=== PATIENT | male | born 1980 | race Caucasian/White ===

== ENCOUNTER 2017-02-08 13:44 | Inpatient (IN) | payer MEDICAID ==
[~2017-02-08] VITALS: Ht 175.3 cm; Wt 115.3 kg
[~2017-02-08 13:44] MED LIST: CITA10TA68 PO; VIST50 PO
[2017-02-08] MEDS ORDERED: TRAM50TA4 PO (16:55)
[2017-02-08] MEDS ORDERED: PERCT10 PO (16:55)
[2017-02-08] MEDS ORDERED: TEMA15CA PO (16:55)
[2017-02-08] MEDS ORDERED: ZOLPIDEM TARTRATE 10 MG TABLET PO PRN (17:00)
[2017-02-08 17:17] VITALS: BP 122/75
[2017-02-08 18:20] VITALS: BP 130/66
[2017-02-08] MEDS: LORazepam 2 MG TABLET PO PRN (18:55)
[2017-02-08] MEDS ORDERED: ACETAMINOPHEN 325 MG TABLET PO PRN (19:45)
[2017-02-08] MEDS ORDERED: IBUPROFEN 600 MG TABLET PO PRN (19:45)
[2017-02-08 20:25] VITALS: BP 127/78
[2017-02-09 00:17] VITALS: BP 114/69
[2017-02-09] MEDS: LORazepam 2 MG TABLET PO PRN ×2 (00:52→09:51)
[2017-02-09 08:23] LABS: BASOPHILS % (AUTO) 0.5 % (0.0-2.0); EOSINOPHILS % (AUTO) 2.2 % (1.0-6.0); HEMATOCRIT 42.9 % (41-53); HEMOGLOBIN 14.3 g/dL (13.5-17.5); LYMPHOCYTES # (AUTO) 2.2 K/uL (1.0-4.8); MEAN CORPUSCULAR HEMOGLOBIN 29.1 pg (26.0-34.0); MEAN CORPUSCULAR HGB CONC 33.4 G/dL (31.0-37.0); MEAN CORPUSCULAR VOLUME 87 fL (80-100); MONOCYTES # (AUTO) 0.8 K/uL (0.1-1.0); MONOCYTES % (AUTO) 9.5 % (2.0-9.0); NEUTROPHILS # (AUTO) 5.3 K/uL (1.8-7.7); NEUTROPHILS % (AUTO) 61.8 % (40.0-70.0); PLATELET COUNT (AUTO) 230 K/uL (150-450); RED BLOOD CELL COUNT(AUTO) 4.91 MIL/uL (4.50-5.90); RED CELL DISTRIBUTION WIDTH 14.8 % (11.5-14.5); WHITE BLOOD COUNT (AUTO) 8.5 K/uL (4.5-11.0)
[2017-02-09 08:50] LABS: ALANINE AMINOTRANSFERASE 32 U/L (12-78); ALBUMIN 3.8 g/dL (3.4-5.0); ANION GAP 11 mmol/L (8-16); ASPARTATE AMINOTRANSFERASE 21 U/L (15-37); BILIRUBIN,TOTAL 0.5 mg/dL (0.1-1.0); CALCIUM, TOTAL 8.7 mg/dL (8.8-10.5); CARBON DIOXIDE 27 mmol/L (22-29); CHLORIDE 106 mmol/L (98-107); CHOL/HDL RATIO 5.6 (4.2-7.3); CREATININE 0.96 mg/dL (0.60-1.30); GLOMERULAR FILTR. RATE CALC > 60 mL/min (>60); POTASSIUM 4.3 mmol/L (3.5-5.1); SODIUM SERUM 144 mmol/L (136-145); THYROID STIMULATING HORMONE 0.38 uIU/mL (0.36-3.74); TOTAL PROTEIN, SERUM 6.8 g/dL (6.4-8.2); UREA NITROGEN, BLOOD 20 mg/dL (7-18)
[2017-02-09 08:59] VITALS: BP 113/84
[2017-02-09] MEDS ORDERED: NICOTINE 21 MG/24 HOUR PATCH TD SCH (09:00)
[2017-02-09] MEDS ORDERED: CITALOPRAM HYDROBROMIDE 10 MG TABLET PO SCH (10:30)
[2017-02-09] MEDS ORDERED: HydrOXYzine PAMOATE 50 MG CAPSULE PO SCH (17:00)
[2017-02-09] MEDS ORDERED: TEMAZEPAM 15 MG CAPSULE PO SCH (21:00)
== END 2017-02-09 14:10 | disposition home or self-care (01) | DRG 254 ==
LOC: B2S 17:35
PROVIDERS: ADMIT Psychiatry & Neurology Child & Adolescent Psychiatry; ATTEND Psychiatry & Neurology Child & Adolescent Psychiatry
DX: K43.9 Ventral hernia without obstruction or gangrene (principal); N32.81 Overactive bladder; M54.9 Dorsalgia, unspecified; M17.12 Unilateral primary osteoarthritis, left knee; Z82.49 Family history of ischemic heart disease and other diseases of the circulatory system; Z90.49 Acquired absence of other specified parts of digestive tract; Z88.0 Allergy status to penicillin; Z88.1 Allergy status to other antibiotic agents; Z68.37 Body mass index [BMI] 37.0-37.9, adult; F17.210 Nicotine dependence, cigarettes, uncomplicated
CPT/HCPCS: 84439; 84443

== ENCOUNTER 2020-04-22 17:44 | Emergency (ER) | payer MEDICAID, OTHER ==
[~2020-04-22] VITALS: Ht 177.8 cm; Wt 109.1 kg
[2020-04-22] MEDS ORDERED: ESCI-8 PO (17:57)
[2020-04-22] MEDS ORDERED: LORA-999 PO (17:57)
[2020-04-22] MEDS ORDERED: ARIP2 PO (17:57)
[2020-04-22] MEDS ORDERED: CYCL10 PO (17:57)
[2020-04-22] MEDS ORDERED: OXYB5XL PO (17:57)
[2020-04-22] MEDS ORDERED: HYDR-4031 PO (17:57)
[2020-04-22] MEDS ORDERED: BUPR1FIL5 SL (19:15)
[2020-04-22] MEDS ORDERED: ONDANSETRON HCL 4 MG TABLET PO ONE (19:15)
[2020-04-22] MEDS ORDERED: ESCI20TA87 PO (19:15)
[2020-04-22] MEDS ORDERED: OXYB5 PO (19:15)
[2020-04-22] MEDS ORDERED: HYD50 PO (19:15)
[2020-04-22] MEDS ORDERED: ARIP10TA8 PO (19:15)
[2020-04-22 19:30] LABS: BASOPHILS % (AUTO) 0.7 % (0.0-2.0); EOSINOPHILS % (AUTO) 2.2 % (1.0-6.0); HEMATOCRIT 41.3 % (41-53); HEMOGLOBIN 13.4 g/dL (13.5-17.5); LYMPHOCYTES # (AUTO) 2.5 K/uL (1.0-4.8); LYMPHOCYTES % (AUTO) 25.8 % (22.0-44.0); MEAN CORPUSCULAR HEMOGLOBIN 27.5 pg (26.0-34.0); MEAN CORPUSCULAR HGB CONC 32.4 G/dL (31.0-37.0); MEAN CORPUSCULAR VOLUME 85 fL (80-100); MONOCYTES # (AUTO) 0.8 K/uL (0.1-1.0); MONOCYTES % (AUTO) 8.2 % (2.0-9.0); NEUTROPHILS # (AUTO) 6.2 K/uL (1.8-7.7); NEUTROPHILS % (AUTO) 63.1 % (40.0-70.0); PLATELET COUNT (AUTO) 243 K/uL (150-450); RED BLOOD CELL COUNT(AUTO) 4.85 MIL/uL (4.50-5.90); RED CELL DISTRIBUTION WIDTH 15.1 % (11.5-14.5)
[2020-04-22 20:00] LABS: ANION GAP 10 mmol/L (8-16); CALCIUM, TOTAL 9.8 mg/dL (8.8-10.5); CARBON DIOXIDE 26 mmol/L (22-29); CHLORIDE 100 mmol/L (98-107); CREATININE 1.41 mg/dL (0.60-1.30); GLOMERULAR FILTR. RATE CALC 56 mL/min (>60); GLUCOSE,RANDOM 149 mg/dL (70-110); POTASSIUM 3.8 mmol/L (3.5-5.1); SODIUM SERUM 136 mmol/L (136-145); UREA NITROGEN, BLOOD 17 mg/dL (7-18)
[2020-04-22 20:07] LABS: ALANINE AMINOTRANSFERASE 47 U/L (12-78); ALBUMIN 3.9 g/dL (3.4-5.0); ALKALINE PHOSPHATASE 102 U/L (46-116); ASPARTATE AMINOTRANSFERASE 25 U/L (15-37); BILIRUBIN,TOTAL 0.2 mg/dL (0.1-1.0); LIPASE 97 U/L (73-393); TOTAL PROTEIN, SERUM 8.1 g/dL (6.4-8.2)
[2020-04-22 21:16] VITALS: BP 131/68
== END 2020-04-22 21:22 | disposition home or self-care (01) ==
LOC: EMS 17:44
DX: R11.2 Nausea with vomiting, unspecified (principal); G89.29 Other chronic pain; M54.5 Low back pain; F31.9 Bipolar disorder, unspecified; F17.210 Nicotine dependence, cigarettes, uncomplicated; Z88.0 Allergy status to penicillin; Z88.1 Allergy status to other antibiotic agents; Z79.899 Other long term (current) drug therapy
CPT/HCPCS: 36415; 80053; 83690; 85025; 99283; 99406; G0480; Q0162